=== PATIENT | female | born 1930 | race Caucasian/White ===

== ENCOUNTER 2019-09-08 13:42 | Observation (INO) | payer MEDICARE, OTHER, MEDICAID ==
--- NOTE | 2019-09-08 14:39 | EDM.PDOC ---
ED HPI GENERAL MEDICAL PROBLEM - General Chief Complaint: Respiratory Problem Stated Complaint: [facility] Time Seen by Provider: 09/08/19 14:25 Source of Information: Reports: Patient, EMS History Limitations: Reports: Physical Impairment (Patient has dementia and her personal history is inconsistent and unreliable) - History of Present Illness INITIAL COMMENTS - FREE TEXT/NARRATIVE: 89-year-old female was sent in by ambulance with persistent cough and respiratory difficulty, responding to nebulizers but they were unable to continue the nebulizers due to her not having a COPD diagnosis and Medicare would not pay for them. Patient herself denies any symptoms. Patient had a fever this morning which apparently has resolved, no chills. We did not get any call from her assisted living residence but snf notes were reviewed. Apparently she had some diarrhea and decreased responsiveness this morning. Also a history of UTI. She is DNR and wants comfort cares only, but will except IV fluids and IV medications for comfort but not antibiotics. Onset: Unknown/Unsure Associated Symptoms: Reports: Fever/Chills - Related Data Allergies Allergy/AdvReac Type Severity Reaction Status Date / Time doxycycline Allergy Hives Verified 09/08/19 16:34 Home Meds: Home Meds Acetaminophen 1 supp RECTAL ASDIRECTED PRN 09/08/19 [History] Acetaminophen 650 mg PO TID 09/08/19 [History] Bisacodyl [Dulcolax] 1 supp RECTAL ASDIRECTED PRN 09/08/19 [History] Citalopram [Citalopram HBr] 20 mg PO DAILY 09/08/19 [History] Cyanocobalamin (Vitamin B-12) [Cyanocobalamin Injection] 1 injection IM ASDIRECTED 09/08/19 [History] Fexofenadine [Sue] 60 mg PO DAILY 09/08/19 [History] Furosemide 20 mg PO DAILY 09/08/19 [History] Gabapentin [Neurontin] 200 mg PO DAILY 09/08/19 [History] Hyoscyamine [Hyomax-SL] 0.125 mg SL ASDIRECTED PRN 09/08/19 [History] Hypromellose [Genteal Mild] 2 drop EYEBOTH BID 09/08/19 [History] LORazepam [LORazepam Intensol] 0.5 mg PO Q4H PRN 09/08/19 [History] Melatonin 3 mg PO DAILY 09/08/19 [History] Ondansetron HCl [Zofran] 2 mg PO Q8H 09/08/19 [History] [id number]/Sod Sul/NaCl/Asb/C/KCl [Moviprep Powder Packet] 1 dose PO DAILY [History] Potassium Chloride 10 meq PO DAILY 09/08/19 [History] diphenhydrAMINE [Benadryl] 25 mg PO ASDIRECTED PRN 09/08/19 [History] Past Medical History HEENT History: Reports: Hard of Hearing Cardiovascular History: Reports: Hypertension Genitourinary History: Reports: Retention, 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 Denies: Chills HEENT: Denies: Throat Pain Respiratory: Reports: Shortness of Breath, Cough, Other (Hypoxia) Cardiovascular: Denies: Chest Pain GI/Abdominal: Reports: Diarrhea. Denies: Nausea, Vomiting Skin: Reports: No Symptoms Neurological: Reports: Other (Decreased responsiveness this morning). Denies: Headache ED EXAM, GENERAL - Physical Exam Exam: See Below Exam Limited By: No Limitations General Appearance: Alert, No Apparent Distress, Other (Now appears comfortable , has O2 per nasal cannula and O2 saturations at 92%) Eye Exam: Bilateral Eye: EOMI Head: Atraumatic Respiratory/Chest: No Respiratory Distress, Other (Diffuse decreased breath sounds, scattered expiratory wheezes and rhonchi bilaterally) Cardiovascular: Regular Rate, Rhythm GI/Abdominal: Soft, Non-Tender Extremities: Normal Inspection. No: Pedal Edema Neurological: Alert, No Motor/Sensory Deficits, Other (Chronic confusion, dementia). No: Oriented Skin Exam: Warm, Dry Course - Vital Signs Last Recorded V/S: Last Vital Signs Temp 98.3 F 09/08/19 17:00 Pulse 85 09/08/19 17:00 Resp 16 09/08/19 17:00 BP 131/79 09/08/19 17:00 Pulse Ox 95 09/08/19 17:02 - Orders/Labs/Meds Orders: Medication Orders Acetaminophen (Tylenol) 650 mg PO Q4H PRN PRN Reason: Pain (Mild 1-3)/fever Albuterol (Proventil Neb Soln) 2.5 mg NEB Q4H PRN PRN Reason: Shortness Of Breath/wheezing Albuterol/Ipratropium (Duoneb 3.0-0.5 Mg/3 Ml) 3 ml NEB QIDRT ISABEL Citalopram Hydrobromide (Celexa) 20 mg PO DAILY ISABEL Enoxaparin Sodium (Lovenox) 30 mg SUBCUT Q24H ISABEL Furosemide (Lasix) 20 mg PO DAILY ISABEL Gabapentin (Neurontin) 200 mg PO DAILY ISABEL Lactobacillus Rhamnosus (Culturelle) 1 cap PO BID ISABEL Levofloxacin (Levaquin) 500 mg PO Q48H ISABEL Levofloxacin (Levaquin) 250 mg PO Q48H ISABEL Loratadine (Claritin) 10 mg PO DAILY [facility] Melatonin (Melatonin) 9 mg PO BEDTIME ISABEL Methylprednisolone Sodium Succinate (Solu-Medrol) 40 mg IVPUSH Q6H ISABEL Ondansetron HCl (Zofran Odt) 4 mg PO Q6H PRN PRN Reason: Nausea able to take PO Polyethylene Glycol (Miralax) 17 gm PO DAILY PRN PRN Reason: Constipation Potassium Chloride (Potassium Chloride) 10 meq PO DAILY@0800 [facility] Potassium Chloride (Klor-Con M20) 40 meq PO ONETIME ONE Stop: 09/08/19 21:01 Sodium Chloride (Saline Flush) 10 ml FLUSH ASDIRECTED PRN PRN Reason: Keep Vein Open Labs: Laboratory Tests 09/08/19 09/08/19 09/08/19 Range/Units 14:34 14:55 14:55 WBC 5.4 (4.5-11.0) K/uL RBC 4.16 (3.30-5.50) M/uL Hgb 12.5 (12.0-15.0) g/dL Hct 41.0 (36.0-48.0) % MCV 99 H (80-98) fL MCH 30 (27-31) pg MCHC 31 L (32-36) % Plt Count 241 (150-400) K/uL Neut % (Auto) 50 (36-66) % Lymph % (Auto) 27 (24-44) % [place] % (Auto) 22 H (2-6) % Eos % (Auto) 0 L (2-4) % Baso % (Auto) 0 (0-1) % Sodium 138 L (140-148) mmol/L Potassium 3.3 L (3.6-5.2) mmol/L Chloride 99 L (100-108) mmol/L Carbon Dioxide 25 (21-32) mmol/L Anion Gap 17.3 H (5.0-14.0) mmol/L BUN 16 (7-18) mg/dL Creatinine 1.3 H (0.6-1.0) mg/dL Est Cr Clr Drug Dosing 22.57 mL/min Estimated GFR (MDRD) 39 L (>60) Glucose 153 H (74-106) mg/dL Calcium 8.6 (8.5-10.1) mg/dL Urine Color Yellow (YELLOW) Urine Appearance Clear (CLEAR) Urine pH 7.5 (5.0-8.0) Ur Specific [place] 1.015 (1.008-1.030) Urine Protein Negative (NEGATIVE) mg/dL Urine Glucose (UA) Negative (NEGATIVE) mg/dL Urine Ketones Negative (NEGATIVE) mg/dL Urine Occult Blood Small H (NEGATIVE) Urine Nitrite Negative (NEGATIVE) Urine Bilirubin Negative (NEGATIVE) Urine Urobilinogen 0.2 (0.2-1.0) EU/dL Ur Leukocyte Esterase Negative (NEGATIVE) Urine RBC 10-20 H (0-5) Urine WBC 0-5 (0-5) Ur Epithelial Cells Few Amorphous Sediment Few Urine Bacteria Few Urine Mucus Not seen Meds: Medications Generic Name Dose Route Start Last Admin Trade Name Freq PRN Reason Stop Dose Admin Acetaminophen 650 mg 09/08/19 16:35 Tylenol PO Q4H PRN Pain (Mild 1-3)/fever Albuterol 2.5 mg 09/08/19 16:35 Proventil Neb Soln NEB Q4H PRN Shortness Of Breath/wheezing Albuterol/Ipratropium 3 ml 09/08/19 21:00 Duoneb 3.0-0.5 Mg/3 Ml NEB QIDRT ISABEL Citalopram Hydrobromide 20 mg 09/09/19 09:00 Celexa PO DAILY ISABEL Enoxaparin Sodium 30 mg 09/08/19 18:00 Lovenox SUBCUT Q24H ISABEL Furosemide 20 mg 09/09/19 09:00 Lasix PO DAILY [facility] Gabapentin 200 mg 09/09/19 09:00 Neurontin PO DAILY [facility] Lactobacillus Rhamnosus 1 cap 09/08/19 16:35 Culturelle PO BID [facility] Levofloxacin 500 mg 09/08/19 17:00 Levaquin PO Q48H [facility] Levofloxacin 250 mg 09/08/19 17:00 Levaquin PO Q48H [facility] Loratadine 10 mg 09/09/19 09:00 Claritin PO DAILY [facility] Melatonin 9 mg 09/08/19 21:00 Melatonin PO BEDTIME [facility] Methylprednisolone Sodium Succinate 40 mg 09/08/19 22:00 Solu-Medrol IVPUSH Q6H ISABEL Ondansetron HCl 4 mg 09/08/19 16:35 Zofran Odt PO Q6H PRN Nausea able to take PO Polyethylene Glycol 17 gm 09/08/19 16:35 Miralax PO DAILY PRN Constipation Potassium Chloride 10 meq 09/09/19 08:00 Potassium Chloride PO DAILY@0800 [facility] Potassium Chloride 40 meq 09/08/19 21:00 Klor-Con M20 PO 09/08/19 21:01 ONETIME ONE Sodium Chloride 10 ml 09/08/19 16:35 Saline Flush FLUSH ASDIRECTED PRN Keep Vein Open Discontinued Medications Generic Name Dose Route Start Last Admin Trade Name Freq PRN Reason Stop Dose Admin Doxycycline Hyclate 100 mg 09/08/19 16:35 Vibramycin PO Q12H [facility] Sodium Chloride 1,000 mls @ 200 mls/hr 09/08/19 15:15 09/08/19 15:16 Normal Saline IV 200 mls/hr ASDIRECTED ISABEL Administration Methylprednisolone Sodium Succinate 40 mg 09/08/19 15:25 09/08/19 16:03 Solu-Medrol IVPUSH 09/08/19 15:26 40 mg ONETIME ONE Administration Potassium Chloride 40 meq 09/08/19 17:00 Klor-Con M20 PO 09/08/19 17:01 ONETIME ONE - Re-Assessments/Exams Free Text/Narrative Re-Assessment/Exam: 09/08/19 15:19 Chest x-ray looked clear. IV was started for IV fluids, patient will probably need a small amount of steroid as well. Influenza antigens were obtained and were negative. 01/23/20 15:20 UA obtained by mini cath showed 5-10 RBCs but no evidence of inflammation or infection. White count was normal. At this point patient cannot obtain an O2 saturation above 90% without nebulizers and O2 support and will likely need IV steroids for treatment so the hospitalist service was consulted for admission. Patient was given 40 mg of IV Solu-Medrol. Dr. Capone is here to evaluate the patient for admission. Departure - Departure Time of Disposition: 16:59 Disposition: Admitted As Inpatient 67 Clinical Impression: Bronchitis, Hypoxia - Discharge Information Sepsis Event Note - Evaluation Sepsis Screening Result: No Definite Risk - Focused Exam Vital Signs: Vital Signs Temp Pulse Resp BP Pulse Ox 09/08/19 15:17 98.8 F 96 16 127/61 91 L 09/08/19 13:53 98.7 F 92 20 136/70 92 L Date Exam was Performed: 09/08/19 Time Exam was Performed: 17:09
[2019-09-08] MEDS ORDERED: Sodium Chloride 0.9% 1,000 ML IV SCH (15:15)
--- NOTE | 2019-09-08 15:17 | CRLCR ---
INDICATION: COUGH, LOW 02 CHEST, ONE VIEW An AP radiograph of the chest was performed. Comparison: No previous studies are currently available for comparison. There is shallow inspiration. The lungs appear clear and no pleural effusions are identified. The cardiomediastinal silhouette and pulmonary vasculature appear normal, as do the visualized bones. There are atherosclerotic calcifications in the aorta. IMPRESSION: No acute intrathoracic abnormality identified. ALLIE BOYLE MD [facility] Dictated by: Napoleon Boyle MD @ 09/08/2019 15:16:20 (Electronically Signed)
[2019-09-08] MEDS ORDERED: methylPREDNISolone Sodium Succinate 40 MG/1 ML SDV IVPUSH ONE (15:25)
--- NOTE | 2019-09-08 15:44 | PCM.HP.2 ---
H&P History of Present Illness - General Date of Service: 09/08/19 Admit Problem/Dx: Admission Diagnosis/Problem Admission Diagnosis/Problem Hypoxia Source of Information: Family, Provider, RN Notes Reviewed. No: Patient History Limitations: Reports: Altered Mental Status (Severe dementia) - History of Present Illness Initial Comments - Free Text/Narative: Ms. Brock is an 89-year-old woman who was admitted through the emergency department to observation status for management of hypoxia and fever. She has a known and longstanding history of dementia and is unable to provide meaningful history concerning recent symptoms or review of systems. History from family and emergency department staff is that she was noted to be more weak and lethargic. On evaluation in the emergency department she was found to be mildly hypoxic with a mild increase in respiratory rate. Exam remarkable for scattered expiratory wheezes. Laboratory studies were remarkable only for a mild decrease in potassium level, blood cell count was within normal range and urinalysis shows no evidence of active infection. Chest x-ray showed no infiltrates and influenza a and B antigens were both negative. - Related Data Allergies/Adverse Reactions: Allergies Allergy/AdvReac Type Severity Reaction Status Date / Time doxycycline Allergy Hives Verified 09/08/19 16:34 Home Medications: Home Meds Acetaminophen 1 supp RECTAL ASDIRECTED PRN 09/08/19 [History] Acetaminophen 650 mg PO TID 09/08/19 [History] Bisacodyl [Dulcolax] 1 supp RECTAL ASDIRECTED PRN 09/08/19 [History] Citalopram [Citalopram HBr] 20 mg PO DAILY 09/08/19 [History] Cyanocobalamin (Vitamin B-12) [Cyanocobalamin Injection] 1 injection IM ASDIRECTED 09/08/19 [History] Fexofenadine [Sue] 60 mg PO DAILY 09/08/19 [History] Furosemide 20 mg PO DAILY 09/08/19 [History] Gabapentin [Neurontin] 200 mg PO DAILY 09/08/19 [History] Hyoscyamine [Hyomax-SL] 0.125 mg SL ASDIRECTED PRN 09/08/19 [History] Hypromellose [Genteal Mild] 2 drop EYEBOTH BID 09/08/19 [History] LORazepam [LORazepam Intensol] 0.5 mg PO Q4H PRN 09/08/19 [History] Melatonin 3 mg PO DAILY 09/08/19 [History] Ondansetron HCl [Zofran] 2 mg PO Q8H 09/08/19 [History] [id number]/Sod Sul/NaCl/Asb/C/KCl [Moviprep Powder Packet] 1 dose PO DAILY [History] Potassium Chloride 10 meq PO DAILY 09/08/19 [History] diphenhydrAMINE [Benadryl] 25 mg PO ASDIRECTED PRN 09/08/19 [History] Past Medical History HEENT History: Reports: Hard of Hearing Cardiovascular History: Reports: Hypertension Genitourinary History: Reports: Retention, 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: 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 History: Reports: Other (See Below) Other 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 History: frequent falls Neurological History: Reports: Alzheimers Disease Psychiatric History: Reports: Depression Social & Family History - Tobacco Use Smoking Status *Q: Unknown Ever Smoked - Caffeine Use Caffeine Use: Reports: None H&P Review of Systems - Review of Systems: Review Of Systems: See Below General: Reports: ROS unobtainable (Dementia) Exam - Exam Exam: See Below - Vital Signs Vital Signs: Last Vital Signs Temp 98.8 F 09/08/19 15:17 Pulse 96 09/08/19 15:17 Resp 16 09/08/19 15:17 BP 127/61 09/08/19 15:17 Pulse Ox 91 L 09/08/19 15:17 Weight: 138 lb - Exam Quality Assessment: Supplemental Oxygen, DVT Prophylaxis General: Alert, Cooperative, Mild Distress. No: Oriented HEENT: Conjunctiva Clear, Hearing Intact, Mucosa Moist & [place], Normal Nasal Septum, Posterior Pharynx Clear, Pupils Equal Neck: Supple, Trachea Midline, +2 Carotid Pulse wo Bruit Lungs: Normal Respiratory Effort, Wheezing. No: Crackles, Rales, Rhonchi, Rub Cardiovascular: Regular Rate, Regular Rhythm, Normal S1, Normal S2. No: Systolic Murmur, Diastolic Murmur GI/Abdominal Exam: Soft, Non-Tender, No Organomegaly, No Distention Back Exam: Normal Inspection, Full Range of Motion Extremities: Non-Tender, No Pedal Edema Skin: Warm, Dry, Intact Neurological: Cranial Nerves Intact, Strength Equal Bilateral, Normal Speech, Normal Tone, Sensation Intact. No: Focal Deficit Neuro Extensive - Mental Status: Alert, Normal Mood/Affect, Disorientation to Person, Disorientation to Place, Disorientation to Time, Memory Loss-Remote Events, Memory Loss-Recent Events. No: Oriented x3, Normal Cognition, Memory Intact - Patient Data Lab Results Last 24 hrs: Laboratory Results - last 24 hr 09/08/19 09/08/19 09/08/19 Range/Units 14:34 14:55 14:55 WBC 5.4 (4.5-11.0) K/uL RBC 4.16 (3.30-5.50) M/uL Hgb 12.5 (12.0-15.0) g/dL Hct 41.0 (36.0-48.0) % MCV 99 H (80-98) fL MCH 30 (27-31) pg MCHC 31 L (32-36) % Plt Count 241 (150-400) K/uL Neut % (Auto) 50 (36-66) % Lymph % (Auto) 27 (24-44) % [place] % (Auto) 22 H (2-6) % Eos % (Auto) 0 L (2-4) % Baso % (Auto) 0 (0-1) % Sodium 138 L (140-148) mmol/L Potassium 3.3 L (3.6-5.2) mmol/L Chloride 99 L (100-108) mmol/L Carbon Dioxide 25 (21-32) mmol/L Anion Gap 17.3 H (5.0-14.0) mmol/L BUN 16 (7-18) mg/dL Creatinine 1.3 H (0.6-1.0) mg/dL Est Cr Clr Drug Dosing 22.57 mL/min Estimated GFR (MDRD) 39 L (>60) Glucose 153 H (74-106) mg/dL Calcium 8.6 (8.5-10.1) mg/dL Urine Color Yellow (YELLOW) Urine Appearance Clear (CLEAR) Urine pH 7.5 (5.0-8.0) Ur Specific [place] 1.015 (1.008-1.030) Urine Protein Negative (NEGATIVE) mg/dL Urine Glucose (UA) Negative (NEGATIVE) mg/dL Urine Ketones Negative (NEGATIVE) mg/dL Urine Occult Blood Small H (NEGATIVE) Urine Nitrite Negative (NEGATIVE) Urine Bilirubin Negative (NEGATIVE) Urine Urobilinogen 0.2 (0.2-1.0) EU/dL Ur Leukocyte Esterase Negative (NEGATIVE) Urine RBC 10-20 H (0-5) Urine WBC 0-5 (0-5) Ur Epithelial Cells Few Amorphous Sediment Few Urine Bacteria Few Urine Mucus Not seen Result Diagrams: 09/08/19 14:55 09/08/19 14:55 Shane Results Last 24 hrs: Microbiology 09/08/19 15:07 Influenza Type A Antigen Screen - Final Nasal, Unspecified NEGATIVE INFLUENZA A VIRUS AG REFERENCE RANGE: NEGATIVE Influenza Type B Antigen Screen - Final NEGATIVE INFLUENZA B VIRUS AG REFERENCE RANGE: NEGATIVE Sepsis Event Note - Evaluation Sepsis Screening Result: No Definite Risk - Focused Exam Vital Signs: Vital Signs Temp Pulse Resp BP Pulse Ox 09/08/19 15:17 98.8 F 96 16 127/61 91 L 09/08/19 13:53 98.7 F 92 20 136/70 92 L Date Exam was Performed: 09/08/19 Time Exam was Performed: 17:09 *Q Meaningful Use (ADM) - VTE Risk Assess *Q Each Risk Factor Represents 1 Point: Obesity ( BMI > 25 kg/m2) Total Score 1 Point Risk Factors: 1 Each Risk Factor Represents 2 Points: None Total Score 2 Point Risk Factors: 0 Each Risk Factor Represents 3 Points: Age 75 Years or Greater Total Score 3 Point Risk Factors: 3 Each Risk Factor Represents 5 Points: None Total Score 5 Point Risk Factors: 0 Venous Thromboembolism Risk Factor Score *Q: 4 Problem List Initiated/Reviewed/Updated: Yes Orders Last 24hrs: Active Orders 24 hr Category Date Time Status Patient Status Manage Transfer [TRANSFER] Routine ADT 09/08/19 15:28 Active Sodium Chloride 0.9% [Normal Saline] 1,000 ml Med 09/08/19 15:15 Active IV ASDIRECTED Resuscitation Status Routine Resus Stat 09/08/19 15:31 Ordered Medication Orders Sodium Chloride (Normal Saline) 1,000 mls @ 200 mls/hr IV ASDIRECTED ISABEL Last Admin: 09/08/19 15:16 Dose: 200 mls/hr Assessment/Plan Comment:: ASSESSMENT AND PLAN ASTHMA EXACERBATION WITH MILD HYPOXIA-associated with fever earlier today. Likely secondary to underlying bronchitis, bacterial versus viral. Advanced directive stipulates no IV antibiotics. Chest x-ray shows no obvious infiltrates and white blood cell count is within normal range. -Solu-Medrol 40 mg IV every 6 hours -Nebulized albuterol and DuoNebs -Supplemental oxygen as needed -Levofloxacin 500 mg p.o. every 48 hours BRONCHITIS -Oral antibiotic therapy as above CHRONIC KIDNEY DISEASE STAGE III HYPOKALEMIA -Oral potassium replacement -Recheck potassium level in a.m. PALLIATIVE CARE-advanced directive instructs ongoing care with a focus on comfort and minimal interventions MAINTENANCE ISSUES -DVT prophylaxis; Lovenox 30 mg subcu daily -GI prophylaxis; not indicated -Suarez catheter; not indicated -Nutrition; 2 g sodium diet -Nicotine dependence; not required CODE STATUS-DNR/DNI ADMISSION STATUS-this patient will be admitted to observation status, expect no more than a one night hospital stay for evaluation and management of problems as outlined above. DISPOSITION-anticipate discharge to home after the hospital stay. PRIMARY CARE PROVIDER- - Mortality Measure Prognosis:: Poor
[2019-09-08] MEDS ORDERED: Ondansetron 4 MG Tab.DIS PO PRN (16:35)
[2019-09-08] MEDS ORDERED: Polyethylene Glycol 3350 Powder 17 GM Packet PO PRN (16:35)
[2019-09-08] MEDS ORDERED: Sodium Chloride 0.9% 10 ML Syringe FLUSH PRN (16:35)
[2019-09-08] MEDS ORDERED: Acetaminophen 325 MG Tab PO PRN (16:35)
[2019-09-08] MEDS ORDERED: Albuterol 0.083% 2.5 MG/3 ML Neb Soln NEB PRN (16:35)
[2019-09-08] MEDS ORDERED: Doxycycline 100 MG Cap PO SCH (16:35)
[2019-09-08] MEDS ORDERED: Levofloxacin 500 MG Tab PO SCH (17:00)
[2019-09-08] MEDS ORDERED: Levofloxacin 250 MG Tab PO SCH (17:00)
[2019-09-08] MEDS ORDERED: Potassium Chloride 20 MEQ Tab.ER PO ONE ×2 (17:00→21:00)
[2019-09-08] MEDS ORDERED: Enoxaparin 30 MG/0.3 ML Syringe SUBCUT SCH (18:00)
[2019-09-08] MEDS: Lactobacillus Rhamnosus GG (Probiotic) Cap PO SCH ×2 (18:03→21:58)
[2019-09-08] MEDS ORDERED: Melatonin 3 MG Tab PO SCH (21:00)
[2019-09-08] MEDS: Albuterol/Ipratropium 3.0-0.5 MG/3 ML Neb Soln NEB SCH (21:58)
[2019-09-08] MEDS: methylPREDNISolone Sodium Succinate 40 MG/1 ML SDV IVPUSH SCH (22:00)
[2019-09-09] MEDS: methylPREDNISolone Sodium Succinate 40 MG/1 ML SDV IVPUSH SCH ×2 (04:18→10:29)
[2019-09-09] MEDS: Albuterol/Ipratropium 3.0-0.5 MG/3 ML Neb Soln NEB SCH ×2 (07:23→10:45)
[2019-09-09] MEDS ORDERED: Potassium Chloride 10 MEQ Cap.ER PO SCH (08:00)
[2019-09-09] MEDS ORDERED: Loratadine 10 MG Tab PO SCH (09:00)
[2019-09-09] MEDS ORDERED: Citalopram 20 MG Tab PO SCH (09:00)
[2019-09-09] MEDS ORDERED: Gabapentin 100 MG Cap PO SCH (09:00)
[2019-09-09] MEDS ORDERED: Furosemide 20 MG Tab PO SCH (09:00)
[2019-09-09] MEDS: Lactobacillus Rhamnosus GG (Probiotic) Cap PO SCH (09:14)
--- NOTE | 2019-09-09 11:37 | PCM.DCSUM1 ---
Discharge Summary - Hospital Course Brief History: Ms. Brock is an 89-year-old woman who was admitted through the emergency department with weakness and shortness of breath secondary to underlying hypoxia, with asthma exacerbation and bronchitis. - Discharge Data Discharge Date: 09/09/19 Discharge Disposition: Home, Self-Care 01 Condition: Poor - Referral to Home Health Primary Care Physician: PCP None - Discharge Diagnosis/Problem(s) (1) Palliative care patient SNOMED Code(s): 653311027 ICD Code: Z51.5 - ENCOUNTER FOR PALLIATIVE CARE Status: Acute Current Visit: Yes (2) Bronchitis SNOMED Code(s): 22441428 ICD Code: J40 - BRONCHITIS, NOT SPECIFIED ACUTE OR CHRONIC Status: Acute Current Visit: Yes (3) Hypoxia SNOMED Code(s): 185159484 ICD Code: R09.02 - HYPOXEMIA Status: Acute Current Visit: Yes (4) Late onset Alzheimer's disease with behavioral disturbance SNOMED Code(s): 484799616 ICD Code: G30.1 - ALZHEIMER'S DISEASE WITH LATE ONSET; F02.81 - DEMENTIA IN OTH DISEASES CLASSD ELSWHR W BEHAVIORAL DISTURB Status: Chronic Current Visit: No - Patient Summary/Data Hospital Course: Ms. Brock is an 89-year-old woman who was admitted through the emergency department to observation status for management of hypoxia and fever. She has a known and longstanding history of dementia and was unable to provide meaningful history concerning recent symptoms or review of systems. History from family and emergency department staff is that she was noted to be more weak and lethargic with a fever. On evaluation in the emergency department she was found to be mildly hypoxic with a mild increase in respiratory rate. Exam remarkable for scattered expiratory wheezes. Laboratory studies were remarkable only for a mild decrease in potassium level, blood cell count was within normal range and urinalysis shows no evidence of active infection. Chest x-ray showed no infiltrates and influenza a and B antigens were both negative. On admission she was treated with nebulizer therapy, IV Solu-Medrol, and oral antibiotic therapy with levofloxacin. By the following morning hypoxia had resolved and she had adequate oxygenation without the use of supplemental oxygen. Bilateral expiratory wheezes had resolved and she was afebrile. Activity will be as tolerated and she will resume her usual diet. Follow-up appointment will be scheduled with her primary care provider within 1 week. - Patient Instructions Diet: Usual Diet as Tolerated Activity: As Tolerated Other/Special Instructions: Please schedule follow-up appointment with primary care provider within 1 week. - Discharge Plan *PRESCRIPTION DRUG MONITORING PROGRAM REVIEWED*: Not Applicable *COPY OF PRESCRIPTION DRUG MONITORING REPORT IN PATIENT MAURICIO: Not Applicable Prescriptions/Med Rec: Lactobacillus Rhamnosus GG [Culturelle] 1 cap PO BID #60 cap levoFLOXacin [Levaquin] 500 mg PO Q48H #3 tablet predniSONE [Prednisone] 20 mg PO DAILY #3 tablet Home Medications: Home Meds Acetaminophen 1 supp RECTAL ASDIRECTED PRN 09/08/19 [History] Acetaminophen 650 mg PO TID 09/08/19 [History] Bisacodyl [Dulcolax] 1 supp RECTAL ASDIRECTED PRN 09/08/19 [History] Citalopram [Citalopram HBr] 20 mg PO DAILY 09/08/19 [History] Cyanocobalamin (Vitamin B-12) [Cyanocobalamin Injection] 1 injection IM ASDIRECTED 09/08/19 [History] Fexofenadine [Sue] 60 mg PO DAILY 09/08/19 [History] Furosemide 20 mg PO DAILY 09/08/19 [History] Gabapentin [Neurontin] 200 mg PO DAILY 09/08/19 [History] Hyoscyamine [Hyomax-SL] 0.125 mg SL ASDIRECTED PRN 09/08/19 [History] Hypromellose [Genteal Mild] 2 drop EYEBOTH BID 09/08/19 [History] LORazepam [LORazepam Intensol] 0.5 mg PO Q4H PRN 09/08/19 [History] Melatonin 3 mg PO DAILY 09/08/19 [History] Ondansetron HCl [Zofran] 2 mg PO Q8H 09/08/19 [History] [id number]/Sod Sul/NaCl/Asb/C/KCl [Moviprep Powder Packet] 1 dose PO DAILY [History] Potassium Chloride 10 meq PO DAILY 09/08/19 [History] diphenhydrAMINE [Benadryl] 25 mg PO ASDIRECTED PRN 09/08/19 [History] Dextromethorphan/guaiFENesin [Robitussin DM] 20 ml PO Q4H PRN 09/09/19 [History] Lactobacillus Rhamnosus GG [Culturelle] 1 cap PO BID #60 cap 09/09/19 [Rx] Sennosides/Docusate Sodium [Senna Plus 8.6-50 mg Tablet] 1 tab PO DAILY PRN [History] guaiFENesin [Robafen] 7.5 ml PO Q4H PRN 09/09/19 [History] levoFLOXacin [Levaquin] 500 mg PO Q48H #3 tablet 09/09/19 [Rx] predniSONE [Prednisone] 20 mg PO DAILY #3 tablet 09/09/19 [Rx] - Discharge Summary/Plan Comment DC Time >30 min.: No - Patient Data Vitals - Most Recent: Last Vital Signs Temp 98.5 F 09/09/19 11:00 Pulse 83 09/09/19 11:00 Resp 16 09/09/19 11:00 BP 132/79 09/09/19 11:00 Pulse Ox 94 L 09/09/19 11:00 Weight - Most Recent: 140 lb 0.002 oz I&O - Last 24 hours: Intake & Output 09/08/19 09/09/19 09/09/19 22:59 06:59 14:59 Intake Total 300 500 Balance 300 500 Lab Results - Last 24 hrs: Laboratory Results - last 24 hr 09/08/19 09/08/19 09/08/19 Range/Units 14:34 14:55 14:55 WBC 5.4 (4.5-11.0) K/uL RBC 4.16 (3.30-5.50) M/uL Hgb 12.5 (12.0-15.0) g/dL Hct 41.0 (36.0-48.0) % MCV 99 H (80-98) fL MCH 30 (27-31) pg MCHC 31 L (32-36) % Plt Count 241 (150-400) K/uL Neut % (Auto) 50 (36-66) % Lymph % (Auto) 27 (24-44) % [place] % (Auto) 22 H (2-6) % Eos % (Auto) 0 L (2-4) % Baso % (Auto) 0 (0-1) % Sodium 138 L (140-148) mmol/L Potassium 3.3 L (3.6-5.2) mmol/L Chloride 99 L (100-108) mmol/L Carbon Dioxide 25 (21-32) mmol/L Anion Gap 17.3 H (5.0-14.0) mmol/L BUN 16 (7-18) mg/dL Creatinine 1.3 H (0.6-1.0) mg/dL Est Cr Clr Drug Dosing 22.57 mL/min Estimated GFR (MDRD) 39 L (>60) Glucose 153 H (74-106) mg/dL Calcium 8.6 (8.5-10.1) mg/dL Urine Color Yellow (YELLOW) Urine Appearance Clear (CLEAR) Urine pH 7.5 (5.0-8.0) Ur Specific [place] 1.015 (1.008-1.030) Urine Protein Negative (NEGATIVE) mg/dL Urine Glucose (UA) Negative (NEGATIVE) mg/dL Urine Ketones Negative (NEGATIVE) mg/dL Urine Occult Blood Small H (NEGATIVE) Urine Nitrite Negative (NEGATIVE) Urine Bilirubin Negative (NEGATIVE) Urine Urobilinogen 0.2 (0.2-1.0) EU/dL Ur Leukocyte Esterase Negative (NEGATIVE) Urine RBC 10-20 H (0-5) Urine WBC 0-5 (0-5) Ur Epithelial Cells Few Amorphous Sediment Few Urine Bacteria Few Urine Mucus Not seen 09/09/19 Range/Units 04:10 WBC (4.5-11.0) K/uL RBC (3.30-5.50) M/uL Hgb (12.0-15.0) g/dL Hct (36.0-48.0) % MCV (80-98) fL MCH (27-31) pg MCHC (32-36) % Plt Count (150-400) K/uL Neut % (Auto) (36-66) % Lymph % (Auto) (24-44) % [place] % (Auto) (2-6) % Eos % (Auto) (2-4) % Baso % (Auto) (0-1) % Sodium (140-148) mmol/L Potassium 5.0 (3.6-5.2) mmol/L Chloride (100-108) mmol/L Carbon Dioxide (21-32) mmol/L Anion Gap (5.0-14.0) mmol/L BUN (7-18) mg/dL Creatinine (0.6-1.0) mg/dL Est Cr Clr Drug Dosing mL/min Estimated GFR (MDRD) (>60) Glucose (74-106) mg/dL Calcium (8.5-10.1) mg/dL Urine Color (YELLOW) Urine Appearance (CLEAR) Urine pH (5.0-8.0) Ur Specific [place] (1.008-1.030) Urine Protein (NEGATIVE) mg/dL Urine Glucose (UA) (NEGATIVE) mg/dL Urine Ketones (NEGATIVE) mg/dL Urine Occult Blood (NEGATIVE) Urine Nitrite (NEGATIVE) Urine Bilirubin (NEGATIVE) Urine Urobilinogen (0.2-1.0) EU/dL Ur Leukocyte Esterase (NEGATIVE) Urine RBC (0-5) Urine WBC (0-5) Ur Epithelial Cells Amorphous Sediment Urine Bacteria Urine Mucus RUEL Results - Last 24 hrs: Microbiology 09/08/19 15:07 Influenza Type A Antigen Screen - Final Nasal, Unspecified NEGATIVE INFLUENZA A VIRUS AG REFERENCE RANGE: NEGATIVE Influenza Type B Antigen Screen - Final NEGATIVE INFLUENZA B VIRUS AG REFERENCE RANGE: NEGATIVE Med Orders - Current: Current Medications Acetaminophen (Tylenol) 650 mg PO Q4H PRN PRN Reason: Pain (Mild 1-3)/fever Albuterol (Proventil Neb Soln) 2.5 mg NEB Q4H PRN PRN Reason: Shortness Of Breath/wheezing Albuterol/Ipratropium (Duoneb 3.0-0.5 Mg/3 Ml) 3 ml NEB QIDRT [facility] Last Admin: 09/09/19 10:45 Dose: 3 ml Citalopram Hydrobromide (Celexa) 20 mg PO DAILY [facility] Last Admin: 09/09/19 09:14 Dose: 20 mg Enoxaparin Sodium (Lovenox) 30 mg SUBCUT Q24H [facility] Last Admin: 09/08/19 18:03 Dose: 30 mg Furosemide (Lasix) 20 mg PO DAILY [facility] Last Admin: 09/09/19 09:12 Dose: 20 mg Gabapentin (Neurontin) 200 mg PO DAILY [facility] Last Admin: 09/09/19 09:14 Dose: 200 mg Lactobacillus Rhamnosus (Culturelle) 1 cap PO BID [facility] Last Admin: 09/09/19 09:14 Dose: 1 cap Levofloxacin (Levaquin) 500 mg PO Q48H [facility] Last Admin: 09/08/19 17:58 Dose: 500 mg Levofloxacin (Levaquin) 250 mg PO Q48H [facility] Last Admin: 09/08/19 17:58 Dose: 250 mg Loratadine (Claritin) 10 mg PO DAILY [facility] Last Admin: 09/09/19 09:14 Dose: 10 mg Melatonin (Melatonin) 9 mg PO BEDTIME [facility] Last Admin: 09/08/19 21:59 Dose: 9 mg Methylprednisolone Sodium Succinate (Solu-Medrol) 40 mg IVPUSH Q6H [facility] Last Admin: 09/09/19 10:29 Dose: 40 mg Ondansetron HCl (Zofran Odt) 4 mg PO Q6H PRN PRN Reason: Nausea able to take PO Polyethylene Glycol (Miralax) 17 gm PO DAILY PRN PRN Reason: Constipation Potassium Chloride (Potassium Chloride) 10 meq PO DAILY@0800 [facility] Last Admin: 09/09/19 10:55 Dose: Not Given Sodium Chloride (Saline Flush) 10 ml FLUSH ASDIRECTED PRN PRN Reason: Keep Vein Open Discontinued Medications Doxycycline Hyclate (Vibramycin) 100 mg PO Q12H [facility] Last Admin: 09/08/19 18:04 Dose: Not Given Sodium Chloride (Normal Saline) 1,000 mls @ 200 mls/hr IV ASDIRECTED [facility] Last Admin: 09/08/19 15:16 Dose: 200 mls/hr Methylprednisolone Sodium Succinate (Solu-Medrol) 40 mg IVPUSH ONETIME ONE Stop: 09/08/19 15:26 Last Admin: 09/08/19 16:03 Dose: 40 mg Potassium Chloride (Klor-Con M20) 40 meq PO ONETIME ONE Stop: 09/08/19 17:01 Last Admin: 09/08/19 18:01 Dose: 40 meq Potassium Chloride (Klor-Con M20) 40 meq PO ONETIME ONE Stop: 09/08/19 21:01 Last Admin: 09/08/19 21:59 Dose: 40 meq - Exam General: Reports: Alert, Cooperative, No Acute Distress. Denies: Oriented Lungs: Reports: Clear to Auscultation, Normal Respiratory Effort Cardiovascular: Reports: Regular Rate, Regular Rhythm, No Murmurs GI/Abdominal Exam: Soft, Non-Tender, No Organomegaly, No Distention Extremities: Non-Tender, No Pedal Edema
== END 2019-09-09 13:00 | disposition home or self-care (01) ==
LOC: JP.ED 13:42 → JP.MS 15:28
PROVIDERS: ADMIT Hospitalist; ATTEND Hospitalist
DX: J45.901 Unspecified asthma with (acute) exacerbation (principal); R09.02 Hypoxemia; Z51.5 Encounter for palliative care; G30.1 Alzheimer's disease with late onset; F02.81 Dementia in other diseases classified elsewhere, unspecified severity, with behavioral disturbance; E87.6 Hypokalemia; I12.9 Hypertensive chronic kidney disease with stage 1 through stage 4 chronic kidney disease, or unspecified chronic kidney disease; N18.3 Chronic kidney disease, stage 3 (moderate); F32.9 Major depressive disorder, single episode, unspecified; Z88.1 Allergy status to other antibiotic agents
CPT/HCPCS: 36415; 71045; 80048; 81001; 84132; 85025; 87804; 87804-59; 94640; 94762; 99284; 99285-25; A9270-GY; J1650; J2920; J7030; J7620-GY

== ENCOUNTER 2019-09-15 11:57 | Emergency (ER) | payer MEDICARE, OTHER, MEDICAID ==
--- NOTE | 2019-09-15 13:06 | CRLCR ---
Indication: 09/08/2019. Technique: Portable AP chest radiograph Comparison: Cough, fever, wheezing Findings: Normal heart and mediastinum for AP technique. Low lung volumes. Lungs and pleural spaces clear. No acute or aggressive osseous abnormality. Impression: No acute findings in the chest. Dictated by Pee Blackburn MD @ Sep 15 2019 1:04PM Signed by Dr. Pee Blackburn @ Sep 15 2019 1:05PM
[2019-09-15] MEDS ORDERED: methylPREDNISolone Sodium Succinate 40 MG/1 ML SDV IVPUSH ONE (13:17)
--- NOTE | 2019-09-15 13:23 | EDM.PDOC ---
ED HPI GENERAL MEDICAL PROBLEM - General Chief Complaint: Respiratory Problem Stated Complaint: [facility] Time Seen by Provider: 09/15/19 12:15 Source of Information: Reports: EMS, RN Notes Reviewed History Limitations: Reports: Physical Impairment (Patient has fairly advanced dementia and her answers are somewhat inconsistent, she has no personal complaints) - History of Present Illness INITIAL COMMENTS - FREE TEXT/NARRATIVE: 89-year-old female who was sent in because of fever, wheezing, cough, and difficulty breathing. She has been on Levaquin until yesterday and was recently on steroids. She was hospitalized 1 week ago with bronchitis and responded well to IV steroids and was discharged in 1 day. She has very specific instructions to avoid hospitalization unless necessary and wants palliative care. On arrival she was afebrile, had fairly significant expiratory wheezes but was not in distress. She did have an occasional moist cough. Duration: Day(s): (Apparently her symptoms have worsened over the past 24 hours) Associated Symptoms: Reports: Confusion (Confusion is chronic), Cough, Fever/ Chills, Malaise, Shortness of Breath. Denies: Chest Pain, Nausea/Vomiting denies Pain Score (Numeric/FACES): 0 - Related Data Allergies Allergy/AdvReac Type Severity Reaction Status Date / Time doxycycline Allergy Hives Verified 09/15/19 12:09 Home Meds: Home Meds Acetaminophen 1 supp RECTAL ASDIRECTED PRN 09/08/19 [History] Acetaminophen 3,525 mg PO TID 09/08/19 [History] Bisacodyl [Dulcolax] 1 supp RECTAL ASDIRECTED PRN 09/08/19 [History] Citalopram [Citalopram HBr] 20 mg PO DAILY 09/08/19 [History] Cyanocobalamin (Vitamin B-12) [Cyanocobalamin Injection] 1 injection IM ASDIRECTED 09/08/19 [History] Fexofenadine [Sue] 60 mg PO DAILY 09/08/19 [History] Furosemide 20 mg PO DAILY 09/08/19 [History] Gabapentin [Neurontin] 200 mg PO BEDTIME 09/08/19 [History] Hyoscyamine [Hyomax-SL] 0.125 mg SL ASDIRECTED PRN 09/08/19 [History] Hypromellose [Genteal Mild] 2 drop EYEBOTH BID 09/08/19 [History] LORazepam [LORazepam Intensol] 0.5 mg PO Q4H PRN 09/08/19 [History] Melatonin 3 mg PO DAILY 09/08/19 [History] Ondansetron HCl [Zofran] 2 mg PO Q8H 09/08/19 [History] [id number]/Sod Sul/NaCl/Asb/C/KCl [Moviprep Powder Packet] 1 dose PO DAILY [History] Potassium Chloride 10 meq PO DAILY 09/08/19 [History] diphenhydrAMINE [Benadryl] 25 mg PO ASDIRECTED PRN 09/08/19 [History] Dextromethorphan/guaiFENesin [Robitussin DM] 20 ml PO Q4H PRN 09/09/19 [History] Lactobacillus Rhamnosus GG [Culturelle] 1 cap PO BID #60 cap 09/09/19 [Rx] Sennosides/Docusate Sodium [Senna Plus 8.6-50 mg Tablet] 1 tab PO DAILY PRN [History] guaiFENesin [Robafen] 7.5 ml PO Q4H PRN 09/09/19 [History] levoFLOXacin [Levaquin] 500 mg PO Q48H #3 tablet 09/09/19 [Rx] Past Medical History HEENT History: Reports: Hard of Hearing Cardiovascular History: Reports: Hypertension Respiratory History: Reports: Other (See Below) Other Respiratory History: recent bronchitis Genitourinary History: Reports: Retention, Urinary MATERIALS 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: Reports: 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 History: Reports: Other (See Below) Other 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 History: frequent falls Neurological History: Reports: Alzheimers Disease, Other (See Below) Other Neuro History: polyneuropathic pain Psychiatric History: Reports: Alzheimers Disease, Depression Hematologic History: Reports: Other (See Below) Other Hematologic History: hypokalemia Oncologic (Cancer) History: Reports: Lymphoma - Infectious Disease History Infectious Disease History: Reports: Chicken Pox Social & Family History - Tobacco Use Smoking Status *Q: Never Smoker Second Hand Smoke Exposure: No - Caffeine Use Caffeine Use: Reports: None - Recreational Drug Use Recreational Drug Use: No ED ROS GENERAL - Review of Systems Review Of Systems: See Below Constitutional: Reports: Fever, Malaise. Denies: Chills Respiratory: Reports: Shortness of Breath, Cough Cardiovascular: Denies: Chest Pain GI/Abdominal: Denies: Nausea, Vomiting Neurological: Denies: Headache ED EXAM, GENERAL - Physical Exam Exam: See Below Exam Limited By: No Limitations General Appearance: Alert, No Apparent Distress Head: Atraumatic Respiratory/Chest: No Respiratory Distress, Wheezing (Diffuse significant inspiratory and expiratory wheezes are heard but underlying good air movement) Cardiovascular: Regular Rate, Rhythm GI/Abdominal: Non-Tender Neurological: Alert, Confused (Chronically confused) Skin Exam: Warm, Dry Course - Vital Signs Last Recorded V/S: Last Vital Signs Temp 97.6 F 09/15/19 12:44 Pulse 80 09/15/19 12:44 Resp 16 09/15/19 12:44 BP 130/67 09/15/19 12:44 Pulse Ox 93 L 09/15/19 12:44 - Orders/Labs/Meds Meds: Medications Discontinued Medications Generic Name Dose Route Start Last Admin Trade Name Freq PRN Reason Stop Dose Admin Methylprednisolone Sodium Succinate 40 mg 09/15/19 13:17 09/15/19 13:28 Solu-Medrol IVPUSH 09/15/19 13:18 40 mg ONETIME ONE Administration - Re-Assessments/Exams Free Text/Narrative Re-Assessment/Exam: 09/15/19 13:21 Influenza antigens were obtained and were negative, portable chest x-ray was negative and stable from 1 week ago. She just finished Levaquin yesterday which probably had no significant effect as this is a viral bronchitis. Her symptoms are more likely exacerbated by the end of the prednisone regimen. O2 saturations remained 93 to 94% on room air, and the patient was given 40 mg of IV Solu-Medrol. If she has nebulizers available at [place], hospitalization is not necessary. 09/15/19 13:43 At time of discharge patient continued to be afebrile, no respiratory distress and O2 saturations 94 to 95% on room air. She did still have significant audible wheezing but I find no reason for hospitalization. Departure - Departure Time of Disposition: 16:06 Disposition: DC/Tfer to Nursing [facility] [place] [facility] 64 Clinical Impression: Viral bronchitis Reactive airway disease Qualifiers: Asthma severity: moderate Asthma persistence: persistent Asthma complication type: uncomplicated Qualified Code(s): J45.40 - Moderate persistent asthma, uncomplicated - Discharge Information Instructions: Acute Bronchitis, Adult, [id number] Referrals: PCP,None [Primary Care Provider] - Forms: ED Department Discharge Care Plan Goals: Duo nebs twice daily and as needed albuterol nebs up to every 3-4 hours will be helpful until bronchitis clears. No need to resume antibiotic. Call her primary provider with updates over the next several days, especially if concerns that she is worsening. Sepsis Event Note - Evaluation Sepsis Screening Result: No Definite Risk - Focused Exam Vital Signs: Vital Signs Temp Pulse Resp BP Pulse Ox 09/15/19 12:44 97.6 F 80 16 130/67 93 L 09/15/19 12:01 97.6 F 80 22 H 130/67 93 L Date Exam was Performed: 09/15/19 Time Exam was Performed: 16:27
== END 2019-09-15 15:45 ==
LOC: JP.ED 11:57
DX: J20.8 Acute bronchitis due to other specified organisms (principal); J45.40 Moderate persistent asthma, uncomplicated; I10 Essential (primary) hypertension; G30.9 Alzheimer's disease, unspecified; F02.80 Dementia in other diseases classified elsewhere, unspecified severity, without behavioral disturbance, psychotic disturbance, mood disturbance, and anxiety; F32.9 Major depressive disorder, single episode, unspecified; Z88.1 Allergy status to other antibiotic agents; Z79.899 Other long term (current) drug therapy
CPT/HCPCS: 71045; 87804; 96374; 99283; 99285; J2920